=== PATIENT | male | born 1975 | race Caucasian/White ===

== ENCOUNTER → 2018-09-03 | Outpatient (CLI) | payer BC ==
[~2018-09-03] MED LIST: OMNIPAQUE 350 MG/ML, 100ML BOTTLE ONE
== END | disposition home or self-care (01) ==
LOC: CFH 09:27
PROVIDERS: ATTEND Internal Medicine Gastroenterology
DX: K22.70 Barrett's esophagus without dysplasia (principal); R19.7 Diarrhea, unspecified
CPT/HCPCS: 74177; Q9967

== ENCOUNTER → 2019-02-27 | Outpatient (CLI) | payer BC ==
[~2019-02-27] MED LIST changes: +ALLER CLEAR PO; +ASPI81TA45 PO; +CARV12.52 PO; +CHOL500050 PO; +DOXA4TAB3 PO; +EPLE25TA4 PO; +IBUP-1902 PO; +METF500T27 PO; +OLME40TA12 PO; -OMNIPAQUE 350 MG/ML, 100ML BOTTLE ONE; +PANT40TA5 PO; +SEMA1PEN SC; +SUCR1TAB PO; +[UNRECOGNIZED DRUG - OTHER]; +amlodipine PO
== END | disposition home or self-care (01) ==
LOC: CVU 06:53
PROVIDERS: ATTEND Registered Nurse
DX: I83.91 Asymptomatic varicose veins of right lower extremity (principal); E11.9 Type 2 diabetes mellitus without complications; Z80.8 Family history of malignant neoplasm of other organs or systems; Z82.49 Family history of ischemic heart disease and other diseases of the circulatory system
CPT/HCPCS: 93971

== ENCOUNTER → 2019-03-28 | Outpatient (CLI) | payer BC | END | disposition home or self-care (01) | LOC: RAD 07:52 | PROVIDERS: ATTEND Internal Medicine Gastroenterology | DX: K22.70 Barrett's esophagus without dysplasia (principal); R13.14 Dysphagia, pharyngoesophageal phase; K21.9 Gastro-esophageal reflux disease without esophagitis; E11.9 Type 2 diabetes mellitus without complications; E78.00 Pure hypercholesterolemia, unspecified; I10 Essential (primary) hypertension; G43.909 Migraine, unspecified, not intractable, without status migrainosus; G47.30 Sleep apnea, unspecified; F41.9 Anxiety disorder, unspecified; F32.9 Major depressive disorder, single episode, unspecified | CPT/HCPCS: 78264; A9541 ==

== ENCOUNTER 2019-04-14 06:47 | Outpatient (CLI) | payer BC | END 2019-04-14 23:59 | disposition home or self-care (01) | LOC: CVU 06:47 | PROVIDERS: ATTEND Registered Nurse | DX: I42.9 Cardiomyopathy, unspecified (principal) | CPT/HCPCS: 93306 ==

== ENCOUNTER 2019-12-12 06:36 | Inpatient (IN) | payer BC ==
[2019-12-10 09:34] LABS: BASOPHILS # (AUTO) 0.05 x10^3/uL (0-0.1); BASOPHILS % (AUTO) 1 % (0-1); EOSINOPHILS # (AUTO) 0.13 x10^3/uL (0-0.4); EOSINOPHILS % (AUTO) 2 % (1-7); LYMPHOCYTES # (AUTO) 2.21 x10^3/uL (1-3.4); LYMPHOCYTES % (AUTO) 34 % (22-44); MD NO; MEAN CORPUSCULAR HEMOGLOBIN 29.5 pg (27.5-34.5); MEAN CORPUSCULAR HGB CONC 32.3 g/dL (33.2-36.2); MEAN CORPUSCULAR VOLUME 91.2 fL (81-97); MEAN PLATELET VOLUME 9.8 fL (7.4-10.4); MONOCYTES # (AUTO) 0.47 x10^3/uL (0.2-0.8); MONOCYTES % (AUTO) 7 % (2-9); NEUTROPHILS # (AUTO) 3.72 x10^3/uL (1.8-6.8); NEUTROPHILS % (AUTO) 57 % (42-75); PLATELET COUNT 228 x10^3/uL (130-400); RED BLOOD COUNT 4.74 x10^6/uL (4.38-5.82); RED CELL DISTRIBUTION WIDTH 13.9 % (9.4-14.8)
[2019-12-10 09:41] LABS: INTERNATIONAL NORMALIZED RATIO 0.97 (0.93-1.1)
[2019-12-10 09:42] LABS: ALBUMIN 3.4 g/dL (3.4-5.0); ANION GAP 7 mmol/L (5-15); CALCIUM 8.6 mg/dL (8.5-10.1); CHLORIDE 106 mmol/L (98-107)
[2019-12-10 09:45] LABS: ALANINE AMINOTRANSFERASE 32 U/L (12-78); ALKALINE PHOSPHATASE 109 U/L (45-117); BILIRUBIN,TOTAL 0.4 mg/dL (0.2-1.0); CREATININE 1.26 mg/dL (0.7-1.3); TOTAL PROTEIN 7.3 g/dL (6.4-8.2)
[2019-12-10 11:20] LABS: MICROSCOPIC AUTO
[~2019-12-12] VITALS: Ht 180.3 cm; Wt 131.9 kg
[~2019-12-12 06:36] MED LIST changes: +BACITRACIN 50,000 UNIT ONE; +BUPIVACAINE/PF-EPI 0.5% 1:200K ONE
[2019-12-12] MEDS ORDERED: LACTATED RINGERS 1,000 ML IV SCH (06:59)
[2019-12-12] MEDS ORDERED: CHLORHEXIDINE 15 ML UDC MM ONE (07:00)
[2019-12-12] MEDS ORDERED: LIDOCAINE-MPF 1%, 2ML ONE (07:27)
[2019-12-12 07:35] VITALS: BP 141/85
[2019-12-12] MEDS ORDERED: BACITRACIN 50,000 UNIT ONE (08:18)
[2019-12-12] MEDS ORDERED: BUPIVACAINE/PF-EPI 0.5% 1:200K ONE (08:18)
[2019-12-12] MEDS ORDERED: GABA-826 PO (08:21)
[2019-12-12] MEDS ORDERED: ATOR20TA86 PO (08:21)
[2019-12-12] MEDS ORDERED: DULO60CA56 PO (08:21)
[2019-12-12] MEDS ORDERED: LOSA100T14 PO (08:21)
[2019-12-12] MEDS ORDERED: MIDAZOLAM 1 MG/ML, 2ML ONE (08:23)
[2019-12-12] MEDS ORDERED: FENTANYL PF 250 MCG/5ML ONE (08:23)
[2019-12-12] MEDS ORDERED: PROPOFOL 150 ML ONE (08:47)
[2019-12-12] MEDS ORDERED: METOPROLOL 1 MG/ML, 5ML ONE (09:42)
[2019-12-12] MEDS ORDERED: PROMETHAZINE 25 MG/ML, 1ML IV PRN (11:00)
[2019-12-12] MEDS ORDERED: KETOROLAC 30 MG/1 ML IV PRN (11:00)
[2019-12-12] MEDS ORDERED: ALBUTEROL SULFATE 2.5 MG/3 ML NPPB PRN (11:00)
[2019-12-12] MEDS ORDERED: hydrALAzine 20 MG/ML, 1ML IV PRN (11:00)
[2019-12-12] MEDS ORDERED: ACETAMINOPHEN 325 MG TABLET PO PRN (11:00)
[2019-12-12] MEDS ORDERED: OXYcodone 5 MG/5 ML ORAL.SOL UDC PO PRN (11:00)
[2019-12-12] MEDS ORDERED: MEPERIDINE/PF 25MG/0.5ML IVPush PRN (11:00)
[2019-12-12] MEDS ORDERED: DIAZEPAM 5 MG/ML, 2ML IVPush PRN (11:00)
[2019-12-12] MEDS ORDERED: LABETALOL 5MG/ML, 20ML IV PRN (11:00)
[2019-12-12] MEDS ORDERED: CEFAZOLIN 1,000 MG ONE (11:53)
[2019-12-12] MEDS ORDERED: DEXAMETHASONE 4 MG/ML, 1ML ONE (11:53)
[2019-12-12] MEDS ORDERED: SUCCINYLCHOLINE 20 MG/ML, 10ML ONE (11:53)
[2019-12-12] MEDS ORDERED: ONDANSETRON 2MG/ML, 2ML ONE (11:53)
[2019-12-12] MEDS ORDERED: NEOSTIGMINE 1 MG/ML, 10ML ONE (11:53)
[2019-12-12] MEDS ORDERED: GLYCOPYRROLATE 0.2MG/1ML, 5ML ONE (11:53)
[2019-12-12] MEDS ORDERED: ROCURONIUM 10MG/ML,5ML ONE (11:53)
[2019-12-12] MEDS ORDERED: PROPOFOL 10 MG/ML, 20ML ONE (11:53)
[2019-12-12] MEDS ORDERED: morphine SULFATE 10 MG/ML, 1ML IVPush PRN (12:30)
[2019-12-12] MEDS ORDERED: PROMETHAZINE 25 MG/ML, 1ML IM PRN (12:30)
[2019-12-12] MEDS ORDERED: HYDROcodone/APAP 5/325 TABLET PO PRN (12:30)
[2019-12-12] MEDS ORDERED: MAGNESIUM HYDROXIDE 8%, 30ML UDC PO PRN (12:30)
[2019-12-12] MEDS ORDERED: INSULIN REGULAR 100 UNITS/ML, 3ML VIAL SQ-INSULIN PRN (12:30)
[2019-12-12] MEDS ORDERED: ONDANSETRON 2MG/ML, 2ML IVPush PRN (12:30)
[2019-12-12] MEDS ORDERED: PHARMACY MAY ADJ FOR RENAL FX MC PRN (12:30)
[2019-12-12] MEDS ORDERED: OXYcodone/APAP 5/325MG TABLET PO PRN (12:30)
[2019-12-12] MEDS ORDERED: DIPHENHYDRAMINE 50 MG/ML, 1ML IVPush PRN (12:30)
[2019-12-12] MEDS ORDERED: METHOCARBAMOL 750 MG TABLET PO PRN (12:30)
[2019-12-12] MEDS ORDERED: SENNA/DOCUSATE TABLET PO PRN (12:30)
[2019-12-12] MEDS ORDERED: FENTANYL PF 100 MCG/2ML ONE (12:47)
[2019-12-12] MEDS ORDERED: OXYcodone 5 MG/5 ML ORAL.SOL UDC ONE (12:48)
[2019-12-12] MEDS: FENTANYL PF 100 MCG/2ML IV PRN ×2 (12:50→12:55)
[2019-12-12] MEDS ORDERED: METHOCARBAMOL 1000MG/10 ML IV STA (12:58)
[2019-12-12] MEDS ORDERED: HYDROmorphone 1 MG/ML, 1ML INJ ONE (13:00)
[2019-12-12] MEDS: HYDROmorphone 2 MG/ML, 1ML IVPush PRN ×3 (13:02→13:18)
[2019-12-12] MEDS ORDERED: METHOCARBAMOL 1,000 MG in DEXTROSE 5% 100 ML IV ONE (13:15)
[2019-12-12] MEDS ORDERED: CYCLOBENZAPRINE 10 MG TABLET ONE (14:28)
[2019-12-12] MEDS: CYCLOBENZAPRINE 10 MG TABLET PO PRN (14:30)
[2019-12-12] MEDS: NS + 20MEQ KCL 1,000 ML IV SCH ×2 (17:05→20:44)
[2019-12-12] MEDS: LOSARTAN MC SCH ×2 (17:49→20:44)
[2019-12-12] MEDS: INSULIN REGULAR 100 UNITS/ML, 3ML VIAL SQ-INSULIN SCH ×2 (18:00→20:43)
[2019-12-12] MEDS: HYDROcodone/APAP 10/325 MG TABLET PO PRN ×2 (18:09→19:09)
[2019-12-12 18:42] VITALS: BP 141/101
[2019-12-12] MEDS: LOSARTAN 100 MG TAB PO SCH (20:31)
[2019-12-12] MEDS: GABAPENTIN 100 MG CAPSULE PO SCH (20:31)
[2019-12-12] MEDS: CEFAZOLIN PMX 1GM/50ML 50 ML IVPB SCH (20:31)
[2019-12-12] MEDS: CARVEDILOL 25 MG TABLET PO SCH (20:33)
[2019-12-12] MEDS: SODIUM CHLORIDE FLUSH 10ML SYR IVF SCH (20:33)
[2019-12-13 00:38] VITALS: BP 118/83
[2019-12-13] MEDS: CYCLOBENZAPRINE 10 MG TABLET PO PRN ×2 (02:10→10:52)
[2019-12-13 03:52] VITALS: BP_SYST 125; BP_DIAS 75; BP_DIAS 85
[2019-12-13] MEDS: CEFAZOLIN PMX 1GM/50ML 50 ML IVPB SCH (03:56)
[2019-12-13] MEDS: HYDROcodone/APAP 10/325 MG TABLET PO PRN ×2 (06:07→10:52)
[2019-12-13] MEDS: INSULIN REGULAR 100 UNITS/ML, 3ML VIAL SQ-INSULIN SCH ×2 (06:19→11:00)
[2019-12-13] MEDS: LOSARTAN MC SCH (07:30)
[2019-12-13 08:00] VITALS: BP 108/68
[2019-12-13] MEDS: CARVEDILOL 25 MG TABLET PO SCH (08:45)
[2019-12-13] MEDS: SODIUM CHLORIDE FLUSH 10ML SYR IVF SCH (08:46)
[2019-12-13] MEDS: LOSARTAN 100 MG TAB PO SCH (08:47)
[2019-12-13] MEDS: GABAPENTIN 100 MG CAPSULE PO SCH (08:47)
[2019-12-13] MEDS ORDERED: PANTOPRAZOLE 40MG TABLET PO SCH (09:00)
[2019-12-13] MEDS ORDERED: DULOXETINE 30 MG CAPSULE.DR PO SCH (09:00)
[2019-12-13] MEDS ORDERED: EPLERENONE 50 MG TABLET PO SCH (09:00)
[2019-12-13] MEDS ORDERED: ATORVASTATIN 20 MG TABLET PO SCH (09:00)
[2019-12-13] MEDS ORDERED: CYCL5TAB PO (09:06)
[2019-12-13] MEDS ORDERED: HYDR-3246 PO (09:07)
== END 2019-12-13 10:55 | disposition home or self-care (01) | DRG 472 ==
LOC: ORIP 06:36 → 4NE 14:50
PROVIDERS: ADMIT Neurological Surgery; ATTEND Neurological Surgery
PROC: 0RB30ZZ Excision of Cervical Vertebral Disc, Open Approach (ICD-10-PCS; 2019-12-12)
PROC: 4A11X4G Monitoring of Peripheral Nervous Electrical Activity, Intraoperative, External Approach (ICD-10-PCS; 2019-12-12)
PROC: 0RG20A0 Fusion of 2 or more Cervical Vertebral Joints with Interbody Fusion Device, Anterior Approach, Anterior Column, Open Approach (ICD-10-PCS; principal; 2019-12-12 09:30)
DX: M48.02 Spinal stenosis, cervical region (principal); Z68.41 Body mass index [BMI] 40.0-44.9, adult; M50.122 Cervical disc disorder at C5-C6 level with radiculopathy; M50.121 Cervical disc disorder at C4-C5 level with radiculopathy; M50.123 Cervical disc disorder at C6-C7 level with radiculopathy; I10 Essential (primary) hypertension; E11.9 Type 2 diabetes mellitus without complications; M19.90 Unspecified osteoarthritis, unspecified site; F32.9 Major depressive disorder, single episode, unspecified; G43.909 Migraine, unspecified, not intractable, without status migrainosus; K21.9 Gastro-esophageal reflux disease without esophagitis; M25.78 Osteophyte, vertebrae; M51.27 Other intervertebral disc displacement, lumbosacral region; M48.061 Spinal stenosis, lumbar region without neurogenic claudication; M48.07 Spinal stenosis, lumbosacral region; Z83.6 Family history of other diseases of the respiratory system; Z82.0 Family history of epilepsy and other diseases of the nervous system; Z82.49 Family history of ischemic heart disease and other diseases of the circulatory system; Z88.8 Allergy status to other drugs, medicaments and biological substances; Z88.1 Allergy status to other antibiotic agents; Z91.040 Latex allergy status; Z20.828 Contact with and (suspected) exposure to other viral communicable diseases
CPT/HCPCS: 36415; 71046; 72040; 80053; 81001; 82962; 85025; 85610; 85730; 86850; 86900; 87635; 93005; 95938; 95941; C1713; G0378; J0690; J1100; J1170; J2250; J2405; J2704; J2710; J3010; J3480; C1762; C1889; J0330; J2800

== ENCOUNTER → 2020-02-12 | Outpatient (CLI) | payer BC ==
[~2020-02-12] MED LIST changes: +ATOR20TA86 PO; -BACITRACIN 50,000 UNIT ONE; -BUPIVACAINE/PF-EPI 0.5% 1:200K ONE; +CYCL5TAB PO; +DULO60CA56 PO; +GABA-826 PO; +HYDR-3246 PO; +LOSA100T14 PO; -PANT40TA5 PO; +PANT40TA6 PO; +REGADENOSON 0.4 MG/5 ML SYRINGE ONE
== END | disposition home or self-care (01) ==
LOC: CFH 07:45
PROVIDERS: ATTEND Internal Medicine Cardiovascular Disease
DX: R06.02 Shortness of breath (principal); I42.9 Cardiomyopathy, unspecified
CPT/HCPCS: 78452; 93017; A9502; J2785

== ENCOUNTER → 2020-03-01 | Outpatient (CLI) | payer BC ==
[~2020-03-01] MED LIST changes: -REGADENOSON 0.4 MG/5 ML SYRINGE ONE
== END | disposition home or self-care (01) ==
LOC: CVU 16:20
PROVIDERS: ATTEND Registered Nurse
DX: I10 Essential (primary) hypertension (principal); I42.9 Cardiomyopathy, unspecified; E78.5 Hyperlipidemia, unspecified; E11.9 Type 2 diabetes mellitus without complications
CPT/HCPCS: 93306

== ENCOUNTER 2020-03-25 12:52 | Emergency (ER) | payer BC ==
[~2020-03-25] VITALS: Ht 180.3 cm; Wt 125.0 kg
[2020-03-25 12:54] VITALS: BP 120/71
--- NOTE | 2020-03-25 13:28 | NUR ---
PT TO IMAGING
[2020-03-25] MEDS ORDERED: SODIUM CHLORIDE FLUSH 10ML SYR IVF ONE (13:30)
[2020-03-25 14:06] LABS: BASOPHILS % (AUTO) 1 % (0-1); EOSINOPHILS % (AUTO) 2 % (1-7); LYMPHOCYTES % (AUTO) 43 % (22-44); MEAN CORPUSCULAR HEMOGLOBIN 29.5 pg (27.5-34.5); MEAN CORPUSCULAR HGB CONC 32.6 g/dL (33.2-36.2); MEAN PLATELET VOLUME 9.4 fL (7.4-10.4); MONOCYTES % (AUTO) 9 % (2-9); NEUTROPHILS % (AUTO) 44 % (42-75); PLATELET COUNT 251 x10^3/uL (130-400); RED BLOOD COUNT 4.18 x10^6/uL (4.38-5.82); RED CELL DISTRIBUTION WIDTH 14.6 % (9.4-14.8)
[2020-03-25 14:13] LABS: MD NO
[2020-03-25 14:15] LABS: ALBUMIN 3.3 g/dL (3.4-5.0); ANION GAP 4 mmol/L (5-15); CALCIUM 8.9 mg/dL (8.5-10.1); CHLORIDE 105 mmol/L (98-107); CREATININE 1.02 mg/dL (0.7-1.3)
[2020-03-25 14:20] LABS: TROPONIN I < 0.015 ng/mL (0.000-0.045)
== END 2020-03-25 16:59 | disposition home or self-care (01) ==
LOC: ED 14:55
DX: R53.1 Weakness (principal); R20.2 Paresthesia of skin; R94.31 Abnormal electrocardiogram [ECG] [EKG]; R51.9 Headache, unspecified; I11.0 Hypertensive heart disease with heart failure; I50.9 Heart failure, unspecified; E11.9 Type 2 diabetes mellitus without complications
CPT/HCPCS: 36415; 70450; 70551; 80048; 82040; 83880; 84484; 85025; 93005; 99285

== ENCOUNTER 2020-06-07 14:29 | Inpatient (IN) | payer BC ==
[~2020-06-07] VITALS: Ht 180.3 cm; Wt 122.6 kg
[~2020-06-07 14:29] MED LIST changes: -HYDR-3246 PO; +HYDR-3248 PO
--- NOTE | 2020-06-07 15:23 | NUR ---
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
[2020-06-07] MEDS ORDERED: SODIUM CHLORIDE 0.9% 1,000ML IVBOLUS ONE (16:00)
[2020-06-07] MEDS ORDERED: HYDROmorphone 2 MG/ML, 1ML IVPush PRN (16:00)
[2020-06-07] MEDS ORDERED: ONDANSETRON 2MG/ML, 2ML IVPush ONE (16:00)
[2020-06-07] MEDS ORDERED: ONDANSETRON 2MG/ML, 2ML ONE (16:07)
[2020-06-07] MEDS ORDERED: HYDROmorphone 1 MG/ML, 1ML INJ ONE (16:07)
--- NOTE | 2020-06-07 16:16 | NUR ---
Pt back from radiology. IV attempted x1 to L AC without success. Veins are barely palpable and not visible on either arm. proced tech at bedside to attempt lab draw and USGPIV will be needed.
[2020-06-07 16:30] LABS: BASOPHILS % (AUTO) 0 % (0-1); EOSINOPHILS % (AUTO) 0 % (1-7); LYMPHOCYTES % (AUTO) 13 % (22-44); MEAN CORPUSCULAR HEMOGLOBIN 29.9 pg (27.5-34.5); MEAN CORPUSCULAR HGB CONC 33.8 g/dL (33.2-36.2); MEAN PLATELET VOLUME 9.6 fL (7.4-10.4); MONOCYTES % (AUTO) 9 % (2-9); NEUTROPHILS % (AUTO) 79 % (42-75); PLATELET COUNT 235 x10^3/uL (130-400); RED BLOOD COUNT 5.58 x10^6/uL (4.38-5.82); RED CELL DISTRIBUTION WIDTH 14.3 % (9.4-14.8)
[2020-06-07 16:39] LABS: ALANINE AMINOTRANSFERASE 20 U/L (12-78); ALBUMIN 3.3 g/dL (3.4-5.0); ANION GAP 10 mmol/L (5-15); CALCIUM 9.2 mg/dL (8.5-10.1); CHLORIDE 105 mmol/L (98-107); CREATININE 1.04 mg/dL (0.7-1.3)
[2020-06-07 16:42] LABS: ALKALINE PHOSPHATASE 115 U/L (45-117); BILIRUBIN,TOTAL 0.7 mg/dL (0.2-1.0); TOTAL PROTEIN 8.2 g/dL (6.4-8.2)
[2020-06-07 17:05] LABS: MD SCAN
[2020-06-07] MEDS ORDERED: OMNIPAQUE 350 MG/ML, 150 ML BOTTLE ONE (17:30)
--- NOTE | 2020-06-07 17:45 | NUR ---
Pt able to give UA sample and aware of pending admission after MD was just at bedside to update him to results and plan of care. IVF running wide open without issue, site benign. 250mL urine emptied from urinal, and call light in reach. Strict NPO orders education provided at this time with stated understanding of this.
[2020-06-07 17:50] LABS: MICROSCOPIC NOT IND
--- NOTE | 2020-06-07 18:24 | NUR ---
Report called to [facility] and pt readied for transport now.
[2020-06-07] MEDS ORDERED: HYDROmorphone 1 MG/ML, 1ML INJ IV ONE (19:30)
[2020-06-07 19:55] VITALS: BP 137/95
[2020-06-07] MEDS ORDERED: ACETAMINOPHEN 325 MG TABLET PO PRN (20:30)
[2020-06-07] MEDS ORDERED: LIDODERM 5% PATCH TD PRN (20:30)
[2020-06-07] MEDS ORDERED: DIPHENHYDRAMINE 50 MG/ML, 1ML IVPush PRN (20:30)
[2020-06-07] MEDS ORDERED: hydrALAzine 20 MG/ML, 1ML IVPush PRN (20:30)
[2020-06-07] MEDS ORDERED: BISACODYL 10 MG SUPP PR PRN (20:30)
[2020-06-07] MEDS: ENOXAPARIN 40 MG/0.4 ML SQ SCH (20:47)
[2020-06-07] MEDS: LACTATED RINGERS 1,000 ML IV SCH (20:57)
[2020-06-07] MEDS ORDERED: INSULIN REGULAR 100 UNITS/ML, 3ML VIAL SQ-INSULIN SCH (21:00)
[2020-06-07] MEDS ORDERED: CARV6.25 PO (22:09)
[2020-06-07] MEDS ORDERED: LOSA100T14 PO (22:10)
[2020-06-07] MEDS ORDERED: PREG75CA PO (22:12)
[2020-06-07] MEDS ORDERED: DOXA2TAB9 PO (22:14)
[2020-06-07] MEDS ORDERED: EMPA10TA PO (22:14)
[2020-06-07] MEDS ORDERED: AMIT25TA PO (22:17)
[2020-06-07] MEDS ORDERED: FURO20TA3 PO (22:17)
[2020-06-07] MEDS: HYDROmorphone 2 MG/ML, 1ML IVPush PRN (22:52)
[2020-06-08 01:42] VITALS: BP 168/100
[2020-06-08] MEDS: HYDROmorphone 2 MG/ML, 1ML IVPush PRN ×8 (01:48→23:32)
[2020-06-08] MEDS: ONDANSETRON 2MG/ML, 2ML IVPush PRN ×2 (03:29→20:34)
[2020-06-08] MEDS: INSULIN REGULAR 100 UNITS/ML, 3ML VIAL SQ-INSULIN SCH ×4 (03:58→21:54)
[2020-06-08] MEDS: LACTATED RINGERS 1,000 ML IV SCH ×3 (04:00→23:32)
[2020-06-08 05:25] LABS: BASOPHILS % (AUTO) 0 % (0-1); EOSINOPHILS % (AUTO) 0 % (1-7); LYMPHOCYTES % (AUTO) 13 % (22-44); MEAN CORPUSCULAR HEMOGLOBIN 29.9 pg (27.5-34.5); MEAN CORPUSCULAR HGB CONC 33.5 g/dL (33.2-36.2); MEAN PLATELET VOLUME 9.8 fL (7.4-10.4); MONOCYTES % (AUTO) 7 % (2-9); NEUTROPHILS % (AUTO) 80 % (42-75); PLATELET COUNT 249 x10^3/uL (130-400); RED BLOOD COUNT 5.14 x10^6/uL (4.38-5.82); RED CELL DISTRIBUTION WIDTH 14.1 % (9.4-14.8)
[2020-06-08 05:35] LABS: MD NO
[2020-06-08 05:37] LABS: ALBUMIN 3.2 g/dL (3.4-5.0); ANION GAP 8 mmol/L (5-15); CALCIUM 9.2 mg/dL (8.5-10.1); CHLORIDE 107 mmol/L (98-107)
[2020-06-08 05:40] LABS: ALANINE AMINOTRANSFERASE 16 U/L (12-78); ALKALINE PHOSPHATASE 104 U/L (45-117); BILIRUBIN,TOTAL 0.7 mg/dL (0.2-1.0); TOTAL PROTEIN 7.5 g/dL (6.4-8.2)
[2020-06-08 06:45] VITALS: BP 128/83
[2020-06-08 07:42] LABS: CHOL/HDL RATIO 2.5; LDL/HDL RATIO 1.2 (0.5-3.0)
[2020-06-08 12:41] VITALS: BP 166/93
[2020-06-08 18:02] VITALS: BP 146/96
[2020-06-08 19:10] VITALS: BP 140/87
[2020-06-08] MEDS: ENOXAPARIN 40 MG/0.4 ML SQ SCH (20:30)
[2020-06-09 00:05] VITALS: BP 152/90
[2020-06-09] MEDS: HYDROmorphone 2 MG/ML, 1ML IVPush PRN ×6 (02:34→20:53)
[2020-06-09] MEDS: INSULIN REGULAR 100 UNITS/ML, 3ML VIAL SQ-INSULIN SCH ×4 (02:35→20:59)
[2020-06-09] MEDS ORDERED: DIPHENHYDRAMINE 50 MG/ML, 1ML IVPush ONE (04:00)
[2020-06-09 05:20] LABS: BASOPHILS % (AUTO) 0 % (0-1); EOSINOPHILS % (AUTO) 2 % (1-7); LYMPHOCYTES % (AUTO) 14 % (22-44); MEAN CORPUSCULAR HEMOGLOBIN 30.2 pg (27.5-34.5); MEAN CORPUSCULAR HGB CONC 33.8 g/dL (33.2-36.2); MEAN PLATELET VOLUME 9.8 fL (7.4-10.4); MONOCYTES % (AUTO) 8 % (2-9); NEUTROPHILS % (AUTO) 77 % (42-75); PLATELET COUNT 187 x10^3/uL (130-400)
[2020-06-09 05:31] LABS: ANION GAP 8 mmol/L (5-15); CALCIUM 9.2 mg/dL (8.5-10.1); CHLORIDE 107 mmol/L (98-107); CREATININE 0.88 mg/dL (0.7-1.3)
[2020-06-09 05:33] LABS: MD NO
[2020-06-09 06:50] VITALS: BP 136/99
[2020-06-09] MEDS: LACTATED RINGERS 1,000 ML IV SCH ×2 (09:16→17:27)
[2020-06-09] MEDS ORDERED: DIPHENHYDRAMINE 50 MG/ML, 1ML ONE (10:11)
[2020-06-09 13:18] VITALS: BP 158/104
[2020-06-09 18:59] VITALS: BP 111/76
[2020-06-09 19:06] VITALS: BP 159/91
[2020-06-09] MEDS: ENOXAPARIN 40 MG/0.4 ML SQ SCH (20:30)
[2020-06-09] MEDS: DIPHENHYDRAMINE 50 MG/ML, 1ML IVPush PRN (20:53)
[2020-06-10 02:09] VITALS: BP 144/96
[2020-06-10] MEDS: LACTATED RINGERS 1,000 ML IV SCH ×3 (02:17→17:14)
[2020-06-10] MEDS: INSULIN REGULAR 100 UNITS/ML, 3ML VIAL SQ-INSULIN SCH ×4 (02:23→19:59)
[2020-06-10] MEDS: DIPHENHYDRAMINE 50 MG/ML, 1ML IVPush PRN (02:31)
[2020-06-10 03:27] LABS: BASOPHILS % (AUTO) 0 % (0-1); EOSINOPHILS % (AUTO) 2 % (1-7); LYMPHOCYTES % (AUTO) 17 % (22-44); MEAN CORPUSCULAR HEMOGLOBIN 30.1 pg (27.5-34.5); MEAN CORPUSCULAR HGB CONC 33.5 g/dL (33.2-36.2); MEAN PLATELET VOLUME 9.9 fL (7.4-10.4); MONOCYTES % (AUTO) 10 % (2-9); NEUTROPHILS % (AUTO) 71 % (42-75); PLATELET COUNT 234 x10^3/uL (130-400); RED BLOOD COUNT 4.79 x10^6/uL (4.38-5.82); RED CELL DISTRIBUTION WIDTH 14.1 % (9.4-14.8)
[2020-06-10 03:32] LABS: MD NO
[2020-06-10 03:34] LABS: ANION GAP 8 mmol/L (5-15); CALCIUM 8.6 mg/dL (8.5-10.1); CHLORIDE 104 mmol/L (98-107)
[2020-06-10 03:36] LABS: CREATININE 0.92 mg/dL (0.7-1.3)
[2020-06-10] MEDS: HYDROmorphone 2 MG/ML, 1ML IVPush PRN (03:55)
[2020-06-10 06:57] VITALS: BP 156/83
[2020-06-10 09:43] VITALS: BP 151/103
[2020-06-10] MEDS: CARVEDILOL 6.25 MG TABLET PO SCH ×2 (09:43→19:48)
[2020-06-10] MEDS ORDERED: HYDROmorphone 2 MG/ML, 1ML IVPush PRN (11:30)
[2020-06-10 12:56] VITALS: BP 144/95
[2020-06-10 18:54] VITALS: BP 151/89
[2020-06-10] MEDS: ENOXAPARIN 40 MG/0.4 ML SQ SCH (19:17)
[2020-06-11 00:58] VITALS: BP 121/71
[2020-06-11] MEDS: LACTATED RINGERS 1,000 ML IV SCH (01:50)
[2020-06-11 01:55] VITALS: BP 118/80
[2020-06-11] MEDS: INSULIN REGULAR 100 UNITS/ML, 3ML VIAL SQ-INSULIN SCH ×3 (02:12→13:50)
[2020-06-11 07:33] VITALS: BP 135/73
[2020-06-11] MEDS: CARVEDILOL 6.25 MG TABLET PO SCH (08:25)
[2020-06-11] MEDS ORDERED: PREGABALIN 75 MG CAPSULE PO SCH (09:00)
[2020-06-11 12:01] VITALS: BP 142/92
[2020-06-11] MEDS ORDERED: LACTATED RINGERS 1,000 ML IV SCH (20:30)
== END 2020-06-11 13:58 | disposition home or self-care (01) | DRG 439 ==
LOC: ED 17:50 → 3N 18:45 → DCLOUNGE 06-11 13:44
PROVIDERS: ADMIT Family Medicine; ATTEND Family Medicine
DX: K85.00 Idiopathic acute pancreatitis without necrosis or infection (principal); I50.42 Chronic combined systolic (congestive) and diastolic (congestive) heart failure; E11.43 Type 2 diabetes mellitus with diabetic autonomic (poly)neuropathy; E11.65 Type 2 diabetes mellitus with hyperglycemia; E66.01 Morbid (severe) obesity due to excess calories; G89.29 Other chronic pain; I11.0 Hypertensive heart disease with heart failure; M51.36 Other intervertebral disc degeneration, lumbar region; K21.9 Gastro-esophageal reflux disease without esophagitis; Z68.37 Body mass index [BMI] 37.0-37.9, adult; Z82.49 Family history of ischemic heart disease and other diseases of the circulatory system; Z83.3 Family history of diabetes mellitus; Z88.1 Allergy status to other antibiotic agents; Z91.040 Latex allergy status
CPT/HCPCS: 36415; 74022; 74177; 80048; 80053; 80061; 81003; 82962; 83690; 84145; 85025; 93005; 96374; 96375; 96376; 99285; G0378; J1170; J1815; J2405; Q9967; J0360; J1200; J7030; J7120

== ENCOUNTER → 2020-08-14 | Outpatient (CLI) | payer BC ==
[~2020-08-14] MED LIST changes: +AMIT25TA PO; +CARV6.25 PO; +DOXA2TAB9 PO; +EMPA10TA PO; +FURO20TA3 PO; +PREG75CA PO
[2020-08-14 16:13] LABS: BASOPHILS % (AUTO) 1 % (0-1); EOSINOPHILS % (AUTO) 2 % (1-7); LYMPHOCYTES % (AUTO) 33 % (22-44); MEAN CORPUSCULAR HGB CONC 33.2 g/dL (33.2-36.2); MEAN PLATELET VOLUME 9.5 fL (7.4-10.4); MONOCYTES % (AUTO) 8 % (2-9); NEUTROPHILS % (AUTO) 57 % (42-75); PLATELET COUNT 264 x10^3/uL (130-400); RED BLOOD COUNT 5.09 x10^6/uL (4.38-5.82); RED CELL DISTRIBUTION WIDTH 14.7 % (9.4-14.8)
[2020-08-14 16:16] LABS: MD NO
[2020-08-14 16:18] LABS: ANION GAP 3 mmol/L (5-15); CALCIUM 9.3 mg/dL (8.5-10.1); CHLORIDE 105 mmol/L (98-107); CREATININE 1.05 mg/dL (0.7-1.3)
[2020-08-14 16:23] LABS: MICROSCOPIC NOT IND
[2020-08-14 16:31] LABS: INTERNATIONAL NORMALIZED RATIO 1.03 (0.93-1.1)
== END | disposition home or self-care (01) ==
LOC: RAD 15:16
PROVIDERS: ATTEND Neurological Surgery
DX: Z01.811 Encounter for preprocedural respiratory examination (principal); Z01.812 Encounter for preprocedural laboratory examination; Z01.810 Encounter for preprocedural cardiovascular examination; R79.1 Abnormal coagulation profile; M48.061 Spinal stenosis, lumbar region without neurogenic claudication; R82.90 Unspecified abnormal findings in urine; R94.31 Abnormal electrocardiogram [ECG] [EKG]; M51.16 Intervertebral disc disorders with radiculopathy, lumbar region; M47.26 Other spondylosis with radiculopathy, lumbar region; M25.78 Osteophyte, vertebrae; I44.0 Atrioventricular block, first degree
CPT/HCPCS: 36415; 71046; 72110; 80048; 81003; 85025; 85610; 85730; 93005

== ENCOUNTER → 2020-08-31 | Outpatient (CLI) | payer BC | END | disposition home or self-care (01) | LOC: CFH 09:08 | PROVIDERS: ATTEND Registered Nurse | DX: R06.02 Shortness of breath (principal); I10 Essential (primary) hypertension; E11.8 Type 2 diabetes mellitus with unspecified complications; E66.01 Morbid (severe) obesity due to excess calories; E78.00 Pure hypercholesterolemia, unspecified; I42.9 Cardiomyopathy, unspecified; K59.00 Constipation, unspecified | CPT/HCPCS: 71046 ==